=== PATIENT | male | born 1945 | race Caucasian/White ===

== ENCOUNTER 2018-09-06 20:09 | Inpatient (IN) ==
[2018-09-06] MEDS ORDERED: NS 1,000 ML IV ONE (22:22)
[2018-09-07 00:25] LABS: BASO# 0.01 X1000 (0.0-0.2); BASO% 0.2 % (0.0-0.8); EOS# 0.05 X1000 (0.0-0.7); HEMATOCRIT 31.2 % (42.0-52.0); HEMOGLOBIN 9.7 g/dL (14.0-18.0); LYMPH# 0.42 X1000 (1.2-3.4); LYMPH% 8.7 % (20.5-51.1); MCH 32.3 PG (27-31); MCHC 31.1 g/dL (33-37); MONO# 0.15 X1000 (0.11-0.59); MONO% 3.1 % (1.7-9.3); MPV 12.4 FL (7.4-10.4); NEUT# 4.21 X1000 (1.4-6.5); PLT 152 X1000 (130-400); WBC 4.84 X1000 (4.8-10.8)
[2018-09-07 00:33] LABS: AGAP 8; ALB/GLOB RATIO 1.3; ALKALINE PHOSPHATASE 64 U/L (32-122); BUN 22 mg/dL (8-22); CALCIUM 8.7 mg/dL (8.8-10.2); CHLORIDE 113 mmol/L (98-107); COSMO 294; CREATININE 0.9 mg/dL (0.7-1.2); ESTIMATED GFR > 60; GLUCOSE 109 mg/dL (70-104); GOT 26 U/L (10-34); GPT 20 U/L (10-44); POTASSIUM 4.7 mmol/L (3.5-5.1); SODIUM 146 mmol/L (136-145); TCO2 25 mmol/L (25-35); TOTAL BILIRUBIN 1.39 mg/dL (0.20-1.00); TOTAL PROTEIN 5.4 g/dL (6.3-8.3)
[2018-09-07] MEDS ORDERED: ATIVAN IV ONE ×3 (01:24→12:45)
--- NOTE | 2018-09-07 02:11 | PROVIDER DOCUMENTATION ---
This chart was entered by Nevaeh Grey Scribe, acting as scribe for Samantha Ruth MD. HPI-General Adult - General Source: patient - History of Present Illness -Gen Adult Nature of Presenting Problems: Pt is 72/M presenting to ED w/ increased n/v after chemotherapy 2-3 days ago. sts that it is worsening and that she believes that he is altered mentally as well. Pt has stage 4 pancreatic cancer and has been receiving treatment for the last 11 months. Location of Pain/Injury: reports: generalized Pain Radiation: reports: no radiation Quality of Pain: reports: none Severity: reports: moderate Onset/Duration: reports: 3 days ago Timing: reports: still present Context/Activities at Onset: reports: none Modifying Factors: improves with: nothing Associated Symptoms: reports: denies symptoms, nausea, vomiting. denies: cough, shortness of breath Similar Symptoms Previously?: Yes Recently seen or treated by another doctor?: Yes (Dr. Mojica) <Samantha Ruth - Last Filed: 09/07/18 02:11> - History of Present Illness -Gen Adult Nature of Presenting Problems: Patient is a 72 year old white male with stage IV pancreatic cancer and history of pneumonia who received chemo 2-3 days ago, presents with increasing shortness of breath and altered mentation. Denies fever. Followed by Dr. Cabello and Dr. Mojica <Christopher Shipley - Last Filed: 09/07/18 06:15> - General Chief Complaint: Nausea/Vomiting Stated Complaint: ON CHEMO, CONFUSION, DECREASED URINE OUTPUT, Time Seen by Provider: 09/06/18 22:22 Allergies/Adverse Reactions: Patient Allergies Allergy/AdvReac Type Severity Reaction Status Date / Time No Known Allergies Allergy Verified 09/06/18 23:26 Home Medications: Home Medication List Medication Instructions Recorded Confirmed Last Taken Type Alprazolam [Xanax] 0.25 mg PO Q12HR #60 tab 10/15/17 09/07/18 11/08/17 04:15 Rx Docusate Sodium [Colace] 100 mg PO BID #60 cap 10/15/17 09/07/18 11/07/17 21:00 Rx Morphine Ir 15 mg PO Q2H PRN PRN 10/16/17 09/07/18 11/08/17 04:15 History Polyethylene Glycol 3350 [Miralax] 17 gm PO Q6H PRN PRN powder, 10/19/17 09/07/18 11/07/17 21:00 Rx packet Acetaminophen [Tylenol] 500 mg PO TID PRN 11/07/17 09/07/18 11/05/17 History Megestrol Acetate 2 tab PO TID 11/07/17 09/07/18 11/07/17 21:00 History Vitamin B Complex [B Complex] 1 each PO DAILY 11/07/17 09/07/18 11/07/17 09:00 History Zinc 50 mg PO BID 11/07/17 09/07/18 11/07/17 09:00 History Rivaroxaban [Xarelto] 20 mg PO DAILY 07/08/18 09/07/18 Unknown History Acetaminophen [Tylenol] 650 mg PO PRN PRN tablet 07/11/18 09/07/18 Unknown Rx Gabapentin [Neurontin] 300 mg PO TID capsule 07/11/18 09/07/18 Unknown Rx Morphine E.r. [Ms Contin] 30 mg PO BID tablet 07/11/18 09/07/18 Unknown Rx Furosemide 40 mg PO DAILY PRN 09/07/18 09/07/18 Unknown History Ondansetron HCl 1 tab PO TID 09/07/18 09/07/18 Unknown History Review of Systems - Adult - REVIEW OF SYSTEMS - ADULT Constitutional: denies: chills, fever Eyes: reports: no symptoms reported Ears, Nose, Mouth & Throat: reports: no symptoms reported Cardiovascular: reports: no symptoms reported Respiratory: denies: cough, shortness of breath, wheezing Gastrointestinal: reports: nausea, vomiting. denies: abdominal pain Genitourinary: reports: no symptoms reported Musculoskeletal: reports: no symptoms reported Integumentary: reports: no symptoms reported Neurological: reports: no symptoms reported. denies: dizziness/vertigo, headache/migraines Psychiatric: reports: no symptoms reported Endocrine: reports: no symptoms reported Hematologic/Lymphatic: reports: no symptoms reported Allergic/Immunologic: reports: no symptoms reported All Other Systems: Reviewed and Negative <Samantha Ruth - Last Filed: 09/07/18 02:11> Past History - Adult - PAST MEDICAL HISTORY-ADULT Review of Records: reports: Old Records Reviewed, Nursing Assessment Review, Medications Reviewed, Social history reviewed & non-contributory. Major Childhood Illnesses: reports: denies history Cardiovascular: reports: denies history Respiratory: reports: denies history Gastrointestinal: reports: denies history Obstetrical/Gynecological: reports: denies history Genitourinary: reports: denies history Musculoskeletal: reports: denies history Neurological: reports: denies history Endocrine/Immune: reports: denies history, cancer Other Conditions: reports: denies history - PRIOR SURGERIES/PROCEDURES Surgical/Procedure History: reports: other (right knee) - IMMUNIZATION STATUS Childhood Immunizations: See Nurse Assessment Flu Vaccine: See Nurse Assessment - FAMILY HISTORY Family History: reviewed, not pertinent - SOCIAL HISTORY Smoking: cigarettes, less than 1 pack/day Provider spent 3-5 mins advising pt. on dangers of tobacco.: Discussed manners to quit use, and f/u contacts for add'l counseling. Substance Use: none/never Alcohol Use Frequency: never Living Situation: family <Samantha Ruth - Last Filed: 09/07/18 02:11> Physical Exam-General - PHYSICAL EXAM-ADULT Initial Vital Signs Reviewed: Yes - CONSTITUTIONAL General Appearance: appears well, alert, no apparent distress, thin - EYES Eyes: PERRL/EOMI, pink conjunctivae - HEAD, EARS, NOSE, MOUTH & THROAT HENMT: normocephalic/atraumatic, moist mucous membranes, normal ENT inspection, TMs normal, pharynx normal - NECK Neck: non-tender, full range of motion, supple, normal inspection - RESPIRATORY Respiratory: chest non-tender, lungs clear, normal breath sounds - CARDIOVASCULAR Cardiovascular: regular rate, rhythm, other (trace edema bilaterally) - GASTROINTESTINAL (ABDOMEN) Abdominal Exam: normal bowel sounds, non tender, soft. negative: rebound, tenderness - LYMPHATIC Lymphatic: no adenopathy - MUSCULOSKELETAL Back Exam: normal inspection, no CVA tenderness, no vertebral tenderness Extremity: normal range of motion, non-tender, normal gait, normal inspection - SKIN Integumentary: normal color, warm/dry - NEUROLOGIC Neurologic: grossly normal - PSYCHIATRIC Psych/Mental Status: normal mood/affect, normal thought content, normal thought process, oriented x 3 <Samantha Ruth - Last Filed: 09/07/18 02:11> Progress - PLAN OF CARE/RESULTS Progress/Plan/Lab Results: Vital Signs - 8 hr 03/28/19 20:15 Temperature 98.8 F Pulse Rate 75 Respiratory Rate 15 Blood Pressure 152/88 O2 Sat by Pulse Oximetry 96 Orders Category Date Time Status cxr [CHEST-PORTABLE] [RAD] Stat Exams 09/06/18 23:33 Ordered CBC WITH DIFF [HEME] Stat Lab 09/06/18 23:33 Uncollected CMP [COMPREHENSIVE METABOLIC PANEL] [CHEM] Stat Lab 09/06/18 23:33 Uncollected 0.9% Sodium Chloride Inj [Ns] 1,000 ml Med 09/06/18 22:22 Discontinued IV 999 mls/hr Result Diagrams: 09/06/18 23:05 09/06/18 23:05 - CHANGE OF SHIFT REPORT (ED Provider) 1 Report Given and Care Transferred to:: Dr. shipley Time of Transfer: 02:05 Items Pending: Other (head ct and ct of chest) <Samantha Ruth - Last Filed: 09/07/18 02:11> - PLAN OF CARE/RESULTS Progress/Plan/Lab Results: Vital Signs - 8 hr 09/06/18 20:15 09/07/18 03:03 Temperature 98.8 F 97.9 F Pulse Rate 75 79 Respiratory Rate 15 16 Blood Pressure 152/88 153/98 O2 Sat by Pulse Oximetry 96 98 Laboratory Results - last 24 hr 09/06/18 09/06/18 23:05 23:05 WBC 4.84 RBC 3.00 L Hgb 9.7 L Hct 31.2 L MCV 104.0 H MCH 32.3 H MCHC 31.1 L RDW Std Deviation 18.0 H Plt Count 152 MPV 12.4 H Neut % (Auto) 87.0 H Lymph % (Auto) 8.7 L [place] % (Auto) 3.1 Eos % (Auto) 1.0 Baso % (Auto) 0.2 Neut # (Auto) 4.21 Lymph # (Auto) 0.42 L [place] # (Auto) 0.15 Eos # (Auto) 0.05 Baso # (Auto) 0.01 Sodium 146 H Potassium 4.7 Chloride 113 H Carbon Dioxide 25 Anion Gap 8 BUN 22 Creatinine 0.9 Estimated GFR/1.73 m2 > 60 BUN/Creatinine Ratio 24 Glucose 109 H Calculated Osmolality 294 Calcium 8.7 L Total Bilirubin 1.39 H AST 26 ALT 20 Alkaline Phosphatase 64 Total Protein 5.4 L Albumin 3.0 L Globulin 2.4 Albumin/Globulin Ratio 1.3 Orders Category Date Time Status CT HEAD W/O CONTRAST [CT] Stat Exams 09/07/18 01:31 Taken Chest [CT THORAX W/CONTRAST] [CT] Stat Exams 09/07/18 00:35 Taken cxr [CHEST-PORTABLE] [RAD] Stat Exams 09/06/18 23:33 Taken ABG [RESP] Stat Lab 09/07/18 03:55 Ordered BLOOD CULTURE [BLDCUL] Stat Lab 09/07/18 03:54 Uncollected CBC WITH DIFF [HEME] Stat Lab 09/06/18 23:05 Completed CMP [COMPREHENSIVE METABOLIC PANEL] [CHEM] Stat Lab 09/06/18 23:05 Completed LACTATE, PLASMA [CHEM] Stat Lab 09/07/18 03:54 Uncollected 0.9% Sodium Chloride Inj [Ns] 1,000 ml Med 09/06/18 22:22 Discontinued IV 999 mls/hr Lorazepam [Ativan] Med 09/07/18 01:24 Discontinued 2 mg IV NOW ONE Result Diagrams: 09/06/18 23:05 09/06/18 23:05 - CT/MRI 1 CT Study: Head (no acute intracranial findings), Thorax CT Results: suggestive for central pulmonary edema and possible aspiration, torie pl effu - CONSULTS/PCP/HOSPITALIST Notification #1 *Consult/PCP/Hospitalist*: Dr. Solis, hospitalist Time Discussed: 06:10 Consult Disposition: Admit <Christopher Shipley - Last Filed: 09/07/18 06:15> Departure <Samantha Ruth - Last Filed: 09/07/18 02:11> - Departure Date of Disposition Decision: 09/07/18 Time of Disposition Decision: 06:15 Certified Medical Emergency: Emergent - Critical Care Note This patient required my direct & personal management of CC.: No <Christopher Shipley - Last Filed: 09/07/18 06:15> - Departure DIAGNOSIS: Bilateral pleural effusion Cancer of pancreas Qualifiers: Pancreatic malignancy location: unspecified Qualified Code(s): C25.9 - Malignant neoplasm of pancreas, unspecified Pulmonary edema Qualifiers: Chronicity: acute Qualified Code(s): J81.0 - Acute pulmonary edema Disposition: ADMITTED INPATIENT 09 Condition: Stable Referrals and Follow-Ups: Mushtaq Cabello MD [Primary Care Provider] - Attestation - Physician/ EMEKA Attestation Patient care was provided by Advanced Practice Provider:: No The physician spent face to face time with patient:: Yes Advanced Practice Provider documentation review:: Supervising physician onsite and consulted in the evaluation and care of this patient. The physician did have a face to face encounter with the patient. <Samantha Ruth - Last Filed: 09/07/18 02:11> This chart was documented by the indicated scribe, (Nevaeh Grey, [place]) and accurately reflects the services I performed and decisions made by me, Samantha Ruth MD, as attested by the provider's signature.
[2018-09-07 04:33] LABS: ALLEN TEST YES; BE -0.7 mmoll (-3.0-3.0); BLOOD TYPE ARTERIAL; HCO3-(ACT) 24.3 mmoll (20.0-26.0); METHB 0.8 % (0.0-1.5); O2(CT) 11.9 mL/dL (15.0-23.0); O2HB 91.4 % (95.0-99.0); PCO2(98.6) 32 mmHg (35-45); PO2(98.6) 66 mmHg (60-100); SAMPLE BLOOD; SAO2 95.6 % (95.0-100.0); THB 9.2 g/dL (11.5-17.4); pH(98.6) 7.46 (7.35-7.45)
[2018-09-07 04:34] LABS: MODALITY ROOM AIR
[2018-09-07] MEDS ORDERED: MORPHINE IV ONE (04:40)
[2018-09-07] MEDS ORDERED: ZOFRAN IV ONE (04:41)
[2018-09-07] MEDS ORDERED: LASIX IV ONE (05:35)
--- NOTE | 2018-09-07 05:37 | Diag Imaging Result Doc PS360 ---
EXAM: CHEST-PORTABLE HISTORY: pna TECHNIQUE: Portable chest single view COMPARISON: 12/16/2017 FINDINGS: Poor inspiratory effort. There is vascular distention. No cardiomegaly. No pleural effusions identified. No change in the right sided portacatheter. No consolidation. IMPRESSION: Pulmonary edema Electronically signed by Javad Crowder 09/07/2018 5:35 AM
--- NOTE | 2018-09-07 07:21 | Diag Imaging Result Doc PS360 ---
EXAM: CT HEAD W/O CONTRAST 09/07/2018 HISTORY: seizures TECHNIQUE: This exam was performed using automated exposure control, adjustment of mA or kV according to patient size, and/or use of iterative reconstruction technique. COMMENT: There is no evidence of mass effect, bleed, abnormal extra-axial fluid collection, or hydrocephalus. There is some calcification in the basal ganglia on the left. There is minimal white matter change in the external capsules. The appearance of the brain has not changed appreciably since 10/16/2017. There is no evidence of bleed, mass effect, or abnormal extra-axial fluid collection. The calvarium is intact. There is mucosal thickening in the maxillary sinuses bilaterally. IMPRESSION: Bilateral chronic maxillary sinusitis. No evidence of acute intracranial disease. Electronically signed by Mamadou Garcia 09/07/2018 7:18 AM
--- NOTE | 2018-09-07 07:34 | Diag Imaging Result Doc PS360 ---
EXAM: CT THORAX W/CONTRAST 09/07/2018 HISTORY: sob TECHNIQUE: This exam was performed using automated exposure control, adjustment of mA or kV according to patient size, and/or use of iterative reconstruction technique. COMMENT: There are no previous thoracic studies available for comparison. Comparison is made where possible with the abdominal CT of 10/11/2017. There are large bilateral pleural effusions more so on the right than the left. There is ascites. There is periportal edema in the liver. There is a fluid collection/cyst in the tail of the pancreas measuring up to 5.5 cm. This is slightly smaller than on the previous abdominal study of 10/11/2017. There is edema in the retroperitoneum and anterior pararenal spaces in particular. There are some prominent celiac nodes however these are stable or slightly diminished in size since the previous abdominal study. There is apparent thrombosis of the splenic vein. There are apparent varices. There are a number of lucencies present in the liver as well as a flash filling enhancing lesion laterally in the right lobe seen best around image 95. The multiple metastases which were demonstrated on 10/11/2017 are presumably much smaller than they were and there may be some residual necrosis. There is no evidence of significant adenopathy in the chest. There is compressive atelectasis in both lungs. The possibility of some underlying pneumonia cannot be excluded. There are degenerative disc changes particularly in the lower thoracic spine. There is no evidence of acute bony disease. IMPRESSION: Bilateral pleural effusions with compressive atelectasis. Ascites. Retroperitoneal edema which may be related to pancreatitis, or anasarca. Chronic changes in the pancreas and liver as described. Electronically signed by Mamadou Garcia 09/07/2018 7:32 AM
[2018-09-07] MEDS ORDERED: ZOFRAN IV PRN (08:05)
[2018-09-07] MEDS ORDERED: NS 1,000 ML IV ONE (08:05)
[2018-09-07] MEDS ORDERED: GEODON IM ONE ×2 (08:20→08:21)
[2018-09-07] MEDS ORDERED: STERILE WATER INJ. INJ ONE ×2 (08:20→08:21)
[2018-09-07] MEDS ORDERED: LEVAQUIN PO SCH (09:00)
[2018-09-07] MEDS ORDERED: MIRALAX PO PRN (09:54)
[2018-09-07] MEDS ORDERED: STERILE WATER INJ. INJ PRN (09:54)
[2018-09-07] MEDS: LEVAQUIN 500 MG/D5W 500 MG/100 ML IVPB IV SCH (10:07)
--- NOTE | 2018-09-07 10:46 | HISTORY AND PHYSICAL ---
CHIEF COMPLAINT: Mental status change. HISTORY OF PRESENT ILLNESS: This 72-year-old white male has known stage IV pancreatic cancer. He undergoes chemo on a weekly basis. The patient had chemo on Monday as per his usual regimen. He began to decline Monday and , but this reached its peak yesterday. The patient's stated that he was combative and violent. He was completely and utterly disoriented, which is not his usual. On previous chemo cycles, he does have developed fever, gets somewhat lethargic and a bit disoriented, but not nearly to the level of what took place last night. In fact, just before I got to the hospital in the morning, they had to call for excessive sedation. It took nearly 5 people to hold him down to give him an injection. PAST MEDICAL HISTORY: 1. A lifelong tobacco user. 2. Alcoholism, chronic. 3. History of blood clot after his diagnosis of pancreatic cancer. 4. Pancreatic cancer, stage IV. SURGICAL HISTORY: 1. Cervical disk. 2. Right rotator cuff repair. 3. Arthroscopy, right knee. ALLERGIES: No known drug allergies. FAMILY HISTORY: Noncontributory. SOCIAL HISTORY: The patient is and lives with his . He has 2 children, who are currently living in the home. He has a lifelong history of alcohol abuse. He has a lifelong history of tobacco use. REVIEW OF SYSTEMS: The patient had chemotherapy on Monday. As per his usual pattern, he began to run low-grade temperature almost immediately following the chemotherapy, and showed slight signs of mental status decline at that point. This continued to accelerate in regard to his level of disorientation, and he became violent last night. He was transported to the emergency room, and after 10 hours was finally admitted. The patient had been nauseated and not eating. He had not been drinking well. 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 She states that he has not been drinking alcohol. He still partakes of some type of cannabis-based gummy that some friend of his provides. He had continued taking his regular medications, which include morphine, gabapentin, and Xanax. PHYSICAL EXAM: GENERAL: At the time of my examination, the patient had been sedated with some Geodon and IV Ativan. I spoke with his in regard to the recent happenings. In general, he is a thin, white male in no acute distress. His face is slightly red. NECK EXAM: Unremarkable. No lymphadenopathy. LUNGS: Clear to auscultation in all nicole. CARDIOVASCULAR: Regular at 60 beats per minute. ABDOMEN: Show bowel sounds are present. EXTREMITIES: Show no peripheral edema. NEUROLOGICALLY AND PSYCHIATRICALLY: He is unable to be tested due to sedation. LABORATORY: White cell count is 4.8, hemoglobin is 9.7. ABG is unremarkable, other than a slight hyperventilation. Serum sodium is 146, chloride is 113, glucose 109, total bilirubin 1.39, lactate 0.9. ASSESSMENT AND PLAN: 1. Do not resuscitate level 1. 2. The patient will be covered with empiric antibiotics post chemotherapy. He almost always develops a fever. Very rarely, if ever, do I recall recovering some type of organism to identify as the source of his fever and it may strictly be chemo-related. 3. Patient's mental status change is an amplified version of what happens after every chemo treatment. I am wondering if any changes in chemotherapy have resulted in direct brain toxicity. 4. The patient has history of alcohol abuse. I am not sure that he is completely compliant with his regimen of benzodiazepines and narcotics. He is also using some cannabis products, so I am not clear on what this is contributing to his overall mental status. Clearly, his psyche is prone to abuse potential, and we will continue to monitor. For the present time, I am going to hold all the psychotropic medications and monitor his progress mentally. I do not want the man to be in pain, but by the same token, I do not want to have an altered sensorium as a result of his medications. This will require fairly significant monitoring. cc: Mushtaq Cabello MD
[2018-09-07] MEDS ORDERED: ATIVAN ONE (12:48)
[2018-09-07] MEDS: MEGACE PO SCH ×2 (13:34→16:29)
[2018-09-07] MEDS: TYLENOL PO PRN (21:42)
[2018-09-08] MEDS: COLACE PO SCH ×3 (00:07→22:22)
[2018-09-08] MEDS: GEODON IM PRN ×2 (01:30→04:12)
[2018-09-08] MEDS ORDERED: MORPHINE IV ONE (09:43)
[2018-09-08] MEDS: LEVAQUIN 500 MG/D5W 500 MG/100 ML IVPB IV SCH (10:32)
[2018-09-08] MEDS: XARELTO PO SCH (10:33)
[2018-09-08] MEDS: MEGACE PO SCH ×3 (10:33→17:10)
[2018-09-08] MEDS: ROXANOL CONC. LIQUID PO PRN ×5 (12:54→22:22)
[2018-09-08] MEDS: TYLENOL PO PRN (17:09)
[2018-09-09 04:00] LABS: URINE SOURCE CLEAN CATCH
[2018-09-09 04:14] LABS: BILIRUBIN URINE NEGATIVE (NEGATIVE); BLOOD URINE MODERATE (NEGATIVE); COLOR YELLOW; GLUCOSE URINE NEGATIVE (NEGATIVE); KETONE URINE NEGATIVE (NEGATIVE); LEUKOCYTES URINE NEGATIVE (NEGATIVE); NITRITE URINE NEGATIVE (NEGATIVE); PH URINE 7.5; PROTEIN URINE 70 mg/dL (NEGATIVE); SP GRAVITY URINE 1.015; TURBIDITY URINE CLEAR (CLEAR); UROBILINOGEN URINE NORMAL (NORMAL)
[2018-09-09 04:15] LABS: UR EPITHELIAL CELLS <10 /HPF (<10); URINE BACTERIA NEGATIVE /HPF; URINE RBC TNTC /HPF (<10); URINE WBC <10 /HPF (<10)
[2018-09-09 04:34] LABS: UR AMPHETAMINES QUAL NONE DETECTED (NONE DETECT); UR BARBITUATES QUAL NONE DETECTED (NONE DETECT); UR BENZODIAZEPIN QUAL NONE DETECTED (NONE DETECT); UR CANNABINOIDS QUAL PRESUMPTIVE POSITIVE (NONE DETECT); UR COCAINE QUAL PRESUMPTIVE POSITIVE (NONE DETECT); UR METHADONE QUAL NONE DETECTED (NONE DETECT); UR OPIATES QUAL PRESUMPTIVE POSITIVE (NONE DETECT); UR OXYCODONE QUAL NONE DETECTED (NONE DETECT); UR PCP QUAL NONE DETECTED (NONE DETECT)
[2018-09-09] MEDS: XARELTO PO SCH (09:31)
[2018-09-09] MEDS: MEGACE PO SCH ×3 (09:31→18:42)
[2018-09-09] MEDS: COLACE PO SCH ×2 (09:31→20:41)
[2018-09-09] MEDS: LEVAQUIN 500 MG/D5W 500 MG/100 ML IVPB IV SCH (09:32)
[2018-09-09] MEDS: ROXANOL CONC. LIQUID PO PRN ×7 (09:49→22:34)
[2018-09-09] MEDS: TYLENOL PO PRN (13:24)
[2018-09-10] MEDS: ROXANOL CONC. LIQUID PO PRN ×5 (01:14→21:38)
[2018-09-10] MEDS: XARELTO PO SCH (09:47)
[2018-09-10] MEDS: COLACE PO SCH ×2 (09:47→21:37)
[2018-09-10] MEDS: MEGACE PO SCH ×3 (09:47→18:36)
[2018-09-10] MEDS: LEVAQUIN 500 MG/D5W 500 MG/100 ML IVPB IV SCH (09:50)
--- NOTE | 2018-09-10 10:11 | HEMO/ONC CONSULTATION ---
DATE: 09/10/2018 REASON FOR CONSULTATION: Consulted for further management of the patient's metastatic pancreatic adenocarcinoma. HISTORY OF PRESENT ILLNESS: Mr. Nathan is a 72-year-old male who presented to the emergency department on 09/07/2018, complaining of increased nausea and vomiting after chemotherapy. was also concerned that the patient seemed to have some altered mental status. According to the , the patient was also combative and violent, and completely disoriented, which is not his usual. Mr. Nathan follows up in our clinic for his metastatic pancreatic adenocarcinoma. CT scan revealed a large pancreatic mass with multiple liver metastasis. CT-guided biopsy was unrevealing. He underwent endoscopic ultrasound and liver biopsy that revealed adenocarcinoma consistent with pancreatic primary. He was started on Gemzar and Abraxane on 10/29/2017 with initial CA-19-9 of 2011. The patient has been tolerating his Gemzar and Abraxane relatively well. The patient last received treatment on 09/04/2018 of his Gemzar and Abraxane at 80% of the dose. The patient also on Procrit for chemotherapy-induced anemia and also received that last dose on 09/04/2018 as well. PAST MEDICAL HISTORY: Life-long tobacco abuse, alcoholism, DVT, stage IV pancreatic cancer. SURGICAL HISTORY: Cervical disk repair, right rotator cuff repair, arthroscopy of the right knee. FAMILY HISTORY: Noncontributory. SOCIAL HISTORY: Life-long history of alcohol and tobacco abuse. No illicit drug use. ALLERGIES: No known drug allergies. HOME MEDICATIONS: 1. Tylenol. 2. Xanax. 3. Colace. 4. Furosemide. 5. Neurontin. 6. Megace. 7. MS Contin. 8. Morphine R. 9. Zofran. 10. MiraLAX. 11. Xarelto. 12. Vitamin B complex. 13. Zinc. REVIEW OF SYSTEMS: Negative as per HPI. PHYSICAL EXAMINATION: Vital Signs: Temperature 98.4 degrees, heart rate 50, respiratory rate 20, blood pressure 163/71, sat 98% on room air. General: The patient is awake, lying in bed, no acute distress noted. HEENT: Anicteric. Mucous membranes moist. Neck: Supple. Trachea midline. No JVD. Lymph Node Survey: No palpable lymphadenopathy. Cardiovascular: S1, S2. Regular rate and rhythm. Chest: Bilateral breath sounds clear to auscultation. Abdomen: Soft. Bowel sounds present in all 4 quadrants. Neurological: The patient is alert and oriented x3. LABORATORY DATA: White blood cell count is 4.84, hemoglobin 9.7, hematocrit of 31.2, platelets are 152. Potassium 4.7, BUN 22, creatinine 0.9. ASSESSMENT AND PLAN: 1. Metastatic pancreatic adenocarcinoma: The patient received his last dose of chemotherapy on 09/04/2018. At this time with treatment, the patient is better and back to baseline. Continue to monitor closely. 2. Altered mental status: CT of the head was negative. Continue recommendations per primary medical team. 3. Alcohol abuse. Continue to monitor withdrawals. Continue recommendations of primary medical team. 4. Nicotine cessation: Nicotine cessation education was provided. 5. Deep venous thrombosis prophylaxis. Continue Xarelto as ordered. Continue to have the patient up as much as possible. Dictated by OSVALDO Diggs for Jesus Mojica MD Patient seen and examined. As above. Patient admitted with change in mental status and agitation. Urine toxicity screen reveals cocaine and cannabis along with opioids. His mental status has improved during the hospitalization. No evidence of infection or metabolic abnormalities. Kidney function and liver function appears adequate. Continue supportive care. Jesus Mojica M.D. cc: OSVALDO Diggs MD Timothy P. Weirich, MD [facility] CENTERCindy
--- NOTE | 2018-09-10 13:08 | PROGRESS NOTE ---
DATE: 09/10/2018 SUBJECTIVE: The patient showed slow signs of improvement over the weekend. I reviewed Dr. Pulido's notes. The patient's states that his appetite is very poor and he is having almost zero nutrition. His mental status has improved. OBJECTIVE: Vital Signs: 98.4, 50, 20, 163/71, 98% saturated on room air. Lungs: Clear. Cardiovascular: Regularly irregular and sounds like a bigeminal pattern at the time of my examination. Extremities: No peripheral edema. The patient does have some numbness in his toes on neurologic examination but is able to move feet, ankles, and toes normally. Abdomen: Shows bowel sounds are present. LABORATORY DATA: There were no labs drawn today. ASSESSMENT AND PLAN: 1. The patient's reaction to his chemotherapy was out of character even for the usual level of confusion and lethargy that he experiences a couple days afterwards. I do not really have any explanation. He typically runs a low-grade fever post chemo and has loss of sensorium to a certain degree. This time, the violent reaction was quite a bit different. I am going to continue intravenous fluids and try and get him up and mobilized to see if we can handle him at home at this point. 2. The patient's is distraught about his decline, but given the course of his disease, I do not think it is out of the realm of what was expected with this particular disease process. 3. We had a very strange reading on the patient's urine drug screen. We know he has been using opiates and we know he has been getting some form of cannabin[place]. He came back with a positive cocaine screen. I checked his labs and they said there are very few, if any, false positives, and there is no human error that could have made that positive as well. He is unaware of anything he might have taken either [id number] or otherwise that could have made his cocaine screen positive. 4. Plan for today is to get the patient up and mobilized, sitting in the chair, eating, drinking, and to assess his function ability at that point. cc: Mushtaq Cabello MD
[2018-09-11 07:55] VITALS: BP 155/76
[2018-09-11] MEDS: ROXANOL CONC. LIQUID PO PRN (08:52)
[2018-09-11] MEDS: MEGACE PO SCH ×2 (08:55→13:09)
[2018-09-11] MEDS: COLACE PO SCH (08:55)
[2018-09-11] MEDS: XARELTO PO SCH (08:55)
[2018-09-11] MEDS: LEVAQUIN 500 MG/D5W 500 MG/100 ML IVPB IV SCH (09:01)
--- NOTE | 2018-09-11 09:19 | HEMO/ONC PROGRESS NOTE ---
DATE: 09/11/2018 SUBJECTIVE: The patient is starting to slowly feel better. Mental status has improved. OBJECTIVE: Vital Signs: Temperature 98.7 degrees, heart rate 51, respiratory rate 16, blood pressure 150/76, saturating 90% on room air. General: Patient is awake, lying in bed, no acute distress noted. HEENT: Anicteric. Pupils PERRLA. Mucous membrane moist. Cardiovascular: S1, S2. Regular rate and rhythm. Chest: Bilateral breath sounds clear to auscultation. Abdomen: Soft, nontender. Bowel sounds are present in all 4 quadrants. Neurologic: Alert and oriented x3. No focal deficits noted. ASSESSMENT AND PLAN: 1. Metastatic pancreatic adenocarcinoma: The patient last received dose of chemotherapy on 09/04/2018. Continue to monitor and wait on patient to return back to baseline. 2. Altered mental status: Mental status is improving since being hospitalized. Most likely cause of altered mental status is related to his cocaine use and cannabis. Continue to monitor closely. 3. Alcohol abuse: Continue to monitor for any withdrawals. Continuing recommendation per primary medical team. 4. Deep venous thrombosis prophylaxis: Continue Xarelto as ordered. Continue to have patient get out of bed as much as possible. 5. Nutrition: Protein shakes 3 times a day. Dictated by OSVALDO Diggs for Jesus Mojica MD Patient seen and examined. As above. Discussed with Dr. Cabello. Patient appears to be back to his mental status baseline. Jesus Mojica M.D. cc: MD Mushtaq Cabrera MD [facility]
--- NOTE | 2018-09-11 22:06 | DISCHARGE SUMMARY ---
ADMISSION DATE: 09/06/2018 DISCHARGE DATE: 09/11/2018 DISCHARGE DIAGNOSES: 1. Acute delirium. 2. Adverse effect of chemotherapeutic agent. 3. Abnormal urine drug screen. 4. Fever. CONSULTATIONS: Jesus Mojica MD HOSPITAL COURSE: This 72-year-old white male presented to the emergency room overnight with acute disturbance of behavior. He was confused and combative and even violent with his and the others who tried to help him in the emergency room. He required chemical sedation and physical restraints at times. The patient had presented late night. His chemo had been given to him on Monday. Although he has the usual downtime with lethargy and a little bit of confusion with low-grade fever following chemotherapy every time, this time was much, much worse. Patient was admitted to the hospital, given IV fluids and medications to calm him. His sensorium recovered after approximately 36 hours. He seemed to be more himself. We had long discussions with the family. The patient's is very angry about the fact that she is getting no help in taking care of him including being rebuffed by the patient at times. She complained about his overall weakness and nutrition but in the end was reconciled to the fact that this is the course for the severity and type of cancer that he has. We decided to discharge the patient home. He did not see any need for rehab and honestly I do not think it would help him. I do not think he would undertake home physical therapy either. The patient and his were both instructed on proper use of medications and those things that would help him to regain his strength. He was discharged in reasonable condition with followup as needed. He has an appointment to see Dr. Mojica next week, but I would advise him staying off the chemo for a week if at all possible. cc: Mushtaq Cabello MD
== END 2018-09-11 13:54 | disposition home or self-care (01) | DRG 948 ==
LOC: ED 20:09 → EDIPHOLD 09-07 09:03 → 4N 09-07 12:11
PROVIDERS: ADMIT Internal Medicine; ATTEND Internal Medicine
CPT/HCPCS: 70450; 71010; 71045; 71260; 80053; 80101; 80301; 80307; 80324; 80345; 80346; 80353; 80358; 80361; 80365; 81001; 82140; 82805; 83605; 83992; 85025; 87040; 94760; 94761; 96361; 96365; 96372; 96375; 96376; 99285; A9270; G0431; G0434; G0479; G0480; J1940; J1956; J2060; J2270; J2405; J3486; J7030; Q9967; S0179

== ENCOUNTER 2019-02-10 01:24 | Observation (INO) ==
[2019-02-10] MEDS ORDERED: NS 1,000 ML IV ONE ×2 (01:59→05:13)
[2019-02-10 02:24] LABS: MCH 32.4 PG (27-31); MCHC 33.3 g/dL (33-37); MCV 97.3 FL (81-99); RBC 3.39 XMIL (4.7-6.1); RDW 16.4 % (11.5-14.5); WBC 2.94 X1000 (4.8-10.8)
[2019-02-10 02:25] LABS: BASO# 0.01 X1000 (0.0-0.2); BASO% 0.3 % (0.0-0.8); EOS# 0.18 X1000 (0.0-0.7); EOS% 6.1 % (0.0-10.0); LYMPH% 23.8 % (20.5-51.1); MONO% 10.2 % (1.7-9.3); MPV 11.7 FL (7.4-10.4); NEUT# 1.75 X1000 (1.4-6.5); NEUT% 59.6 % (42.2-75.2); PLT 126 X1000 (130-400)
[2019-02-10 03:02] LABS: ESTIMATED GFR > 60
[2019-02-10 03:04] LABS: AGAP 12; ALB/GLOB RATIO 1.5; ALBUMIN 3.6 g/dL (3.5-5.0); ALKALINE PHOSPHATASE 64 U/L (32-122); AMYLASE 8 U/L (20-200); BUN 16 mg/dL (8-22); CALCIUM 9.2 mg/dL (8.8-10.2); CHLORIDE 106 mmol/L (98-107); COSMO 278; CREATININE 1.1 mg/dL (0.7-1.2); GLUCOSE 123 mg/dL (70-104); GOT 19 U/L (10-34); GPT 18 U/L (10-44); LIPASE 8 U/L (13-60); POTASSIUM 3.7 mmol/L (3.5-5.1); SODIUM 138 mmol/L (136-145); TCO2 20 mmol/L (25-35); TOTAL BILIRUBIN 0.43 mg/dL (0.20-1.00)
[2019-02-10] MEDS ORDERED: QUESTRAN PO ONE (05:13)
[2019-02-10] MEDS ORDERED: QUESTRAN PO SCH (05:15)
--- NOTE | 2019-02-10 05:21 | PROVIDER DOCUMENTATION ---
This chart was entered by Jaja Ramirez Scribe, acting as scribe for Tori Acevedo MD. HPI-Abdominal Pain/GI Problem - General Chief Complaint: Diarrhea Stated Complaint: CHRONIC DIARRHEA (ON CHEMO) Time Seen by Provider: 02/10/19 01:56 Source: patient, family Allergies/Adverse Reactions: Patient Allergies Allergy/AdvReac Type Severity Reaction Status Date / Time lorazepam [From Ativan] AdvReac MAKES Verified 02/10/19 01:36 PATIENT VIOLENT Home Medications: Home Medication List Medication Instructions Recorded Confirmed Last Taken Type Docusate Sodium [Colace] 100 mg PO BID #60 cap 10/15/17 02/10/19 11/12/18 09:00 Rx Morphine Ir 15 mg PO TID PRN PRN 10/16/17 02/10/19 11/11/18 21:00 History Megestrol Acetate 1 tab PO TID 11/07/17 02/10/19 11/12/18 09:00 History Zinc 50 mg PO BID 11/07/17 02/10/19 11/12/18 09:00 History Rivaroxaban [Xarelto] 20 mg PO DAILY 07/08/18 02/10/19 11/08/18 09:00 History Alprazolam [Xanax] 0.75 - 1 mg PO QHS 11/08/18 02/10/19 11/11/18 21:00 History Cyanocobalamin (Vitamin B-12) 1,000 mcg PO DAILY 11/08/18 02/10/19 11/12/18 09:00 History [Vitamin B-12] Morphine E.r. [Ms Contin] 30 mg PO Q12HR 11/08/18 02/10/19 11/12/18 09:00 History Multivitamin/Iron/Folic Acid 1 ea PO DAILY 11/08/18 02/10/19 11/12/18 09:00 History [Centrum Adults Tablet] Ondansetron HCl [Zofran] 4 mg PO TID 11/08/18 02/10/19 11/12/18 09:00 History Trazodone HCl 300 mg PO HS 11/08/18 02/10/19 11/11/18 21:00 History Furosemide [Lasix] 40 mg PO PRN PRN 02/10/19 02/10/19 Unknown History Pregabalin [Lyrica] 25 mg PO BID 02/10/19 02/10/19 Unknown History Pregabalin [Lyrica] 75 mg PO DAILY 02/10/19 02/10/19 Unknown History Suvorexant [Belsomra] 20 mg PO DAILY 02/10/19 02/10/19 Unknown History - History of Present Illness-ABD Nature of Presenting Problems: 73 yom presents w/family at bedside w/cc BM incontinence and diarrhea starting monday. pt family is main historian. sts that pt has advanced pancreatic cancer, diagnosed last yr, started new chemo on monday. family has given max doses of kaopectate and imodium to pt w/little relief. pt having 5-6 watery diarrhea episodes/day. pt has been eating and drinking. pt has had episodes of "fever", with temp being 99.3 at home. pt sts he is somewhat weak. pt denies vomiting and abd pain. family has pt rx list in room. Pain Radiation: reports: no radiation Quality of Pain: reports: none Onset/Duration: reports: 6 days ago Timing: reports: still present Activities at Onset: reports: none Associated Symptoms: reports: fever/chills Review of Systems - Adult - REVIEW OF SYSTEMS - ADULT Constitutional: reports: see HPI, fever. denies: chills, night sweats Eyes: reports: no symptoms reported Ears, Nose, Mouth & Throat: reports: no symptoms reported Cardiovascular: reports: no symptoms reported Respiratory: reports: no symptoms reported Gastrointestinal: reports: see HPI, diarrhea, other (BM incontinence). denies: abdominal pain, constipation, nausea, poor appetite, vomiting Genitourinary: reports: no symptoms reported Musculoskeletal: reports: see HPI, muscle weakness (minimal). denies: back pain, joint swelling, muscle aches Integumentary: reports: no symptoms reported Neurological: reports: no symptoms reported Psychiatric: reports: no symptoms reported Endocrine: reports: no symptoms reported Hematologic/Lymphatic: reports: no symptoms reported Allergic/Immunologic: reports: no symptoms reported All Other Systems: Reviewed and Negative Past History - Adult - PAST MEDICAL HISTORY-ADULT Review of Records: reports: Old Records Reviewed, Nursing Assessment Review, Medications Reviewed, Social history reviewed & non-contributory. Major Childhood Illnesses: reports: denies history Cardiovascular: reports: denies history Respiratory: reports: denies history Gastrointestinal: reports: denies history Obstetrical/Gynecological: reports: denies history Genitourinary: reports: denies history Musculoskeletal: reports: denies history Neurological: reports: denies history Endocrine/Immune: reports: cancer (stage 4 pancreatic) Other Conditions: reports: denies history - PRIOR SURGERIES/PROCEDURES Surgical/Procedure History: reports: orthopedic (extremity), other (right knee) - IMMUNIZATION STATUS Childhood Immunizations: See Nurse Assessment Flu Vaccine: See Nurse Assessment - FAMILY HISTORY Family History: reviewed, not pertinent - SOCIAL HISTORY Smoking: cigarettes, less than 1 pack/day Provider spent 3-5 mins advising pt. on dangers of tobacco.: Discussed manners to quit use, and f/u contacts for add'l counseling. Substance Use: none/never Physical Exam-General - PHYSICAL EXAM-ADULT Initial Vital Signs Reviewed: Yes - CONSTITUTIONAL General Appearance: alert, no apparent distress, cachetic, thin, other (appears weak). negative: appears well, combative - EYES Eyes: PERRL/EOMI - HEAD, EARS, NOSE, MOUTH & THROAT HENMT: normocephalic/atraumatic, moist mucous membranes, normal ENT inspection - NECK Neck: non-tender, full range of motion, supple, normal inspection - RESPIRATORY Respiratory: chest non-tender, lungs clear, normal breath sounds - CARDIOVASCULAR Cardiovascular: normal peripheral pulses, regular rate, rhythm - GASTROINTESTINAL (ABDOMEN) Abdominal Exam: normal bowel sounds, non tender, soft. negative: abnormal bowel sounds, distended, guarding, rigid, rebound, tenderness - MUSCULOSKELETAL Back Exam: normal inspection, no vertebral tenderness Extremity: normal range of motion, non-tender, normal inspection Peripheral Pulses: dorsalis-pedis (R): 2+, dorsalis-pedis (L): 2+ - SKIN Integumentary: normal turgor, warm/dry, pallor - NEUROLOGIC Neurologic: grossly normal - PSYCHIATRIC Psych/Mental Status: normal mood/affect, oriented x 3 Progress - PLAN OF CARE/RESULTS Progress/Plan/Lab Results: Vital Signs - 8 hr 02/10/19 01:29 Temperature 98.2 F Pulse Rate 81 Respiratory Rate 16 Blood Pressure 115/74 O2 Sat by Pulse Oximetry 98 Patient with WBC to 2.9 but likely 2/2 to chemo. Appears weak on exam. Spoke to Dr Mojica's [employer] who stated that patient should be admitted to hospitalist for IVF and monitor him and they will stay on as consult and see the patient in the AM. Spoke to pharmacist about other options for medications to help with diarrhea and they recommended off label use with Questran 2-4mg PO 2-4x per day and continue with imodium. Spoke to Dr Barr distribution center manager for hospitalist who accepted patient for admission. Further orders to be placed by their team. Result Diagrams: 02/10/19 01:57 02/10/19 01:57 - CONSULTS/PCP/HOSPITALIST Notification #1 *Consult/PCP/Hospitalist*: Dr Barr Time Discussed: 04:30 Consult Disposition: Admit Departure - Departure Date of Disposition Decision: 02/10/19 Time of Disposition Decision: 04:30 DIAGNOSIS: Intractable diarrhea, Weakness, History of pancreatic cancer, Dehydration Disposition: ADMITTED INPATIENT 09 Certified Medical Emergency: Emergent Condition: Stable Referrals and Follow-Ups: Mushtaq Cabello MD [Primary Care Provider] - - Critical Care Note This patient required my direct & personal management of CC.: No Attestation - Physician/ EMEKA Attestation Patient care was provided by Advanced Practice Provider:: No The physician spent face to face time with patient:: Yes Advanced Practice Provider documentation review:: Supervising physician onsite and consulted in the evaluation and care of this patient. The physician did have a face to face encounter with the patient. This chart was documented by the indicated scribe, (Jaja Ramierz Scribe) and accurately reflects the services I performed and decisions made by me, Tori Acevedo MD, as attested by the provider's signature.
[2019-02-10] MEDS ORDERED: IMODIUM PO SCH (05:30)
[2019-02-10] MEDS ORDERED: ZOFRAN IV PRN (06:34)
[2019-02-10] MEDS ORDERED: LASIX PO PRN (06:34)
--- NOTE | 2019-02-10 06:37 | HISTORY AND PHYSICAL ---
PRIMARY CARE PHYSICIAN: Dr. Cabello. CHIEF COMPLAINT: Diarrhea, low-grade temperature, not feeling well. HISTORY OF PRESENTING ILLNESS: A 73-year-old male with a history of pancreatic cancer, who had presented to emergency department with several days history of having diarrhea and having low- grade temperature. Apparently, family states, that his chemo regimen had been recently changed, and subsequently after that he has been having the symptoms. The patient was getting more weak and was also getting, at times, confused. He is brought to the emergency department, and due to his presenting symptoms, it was thought that he will need admission for further management. At the time of my examination, patient denied any headache, chest pain, shortness of breath, but complained of diarrhea and not feeling well. PAST MEDICAL HISTORY: Includes pancreatic cancer. PAST SURGICAL HISTORY: PowerPort, cervical fusion, right knee arthroscopy, bilateral rotator cuff surgery. ALLERGIES: Lorazepam. CURRENT MEDICATIONS: Include Xanax 0.5 mg, 1 tablet at bedtime, Lasix 40 mg p.o. daily, p.r.n., megestrol 40 mg p.o. t.i.d., morphine 30 mg p.o. q.12 hours, Zofran 4 mg p.o. t.i.d., pregabalin 75 mg p.o. daily, Xarelto 20 mg p.o. daily, Belsomra 20 mg p.o. daily, trazodone 300 mg p.o. at bedtime. SOCIAL HISTORY: [id number]-[id number]-dapxy history of smoking. History of alcohol use. History of marijuana use. FAMILY HISTORY: No history of coronary disease. REVIEW OF SYSTEMS: Fourteen-point review of systems is as in HPI. Other systems negative. PHYSICAL EXAMINATION: GENERAL: Cooperative, friendly male. He is resting comfortably now. VITAL SIGNS: Temperature 98.2 degrees, pulse 81, respirations 16, blood pressure 115/74. HEENT: Atraumatic, normocephalic. Extraocular movements intact. PERRLA. NECK: No masses. CHEST: Clear to auscultation. CARDIOVASCULAR: Regular rate and rhythm. ABDOMEN: Soft. Positive bowel sounds. EXTREMITIES: No edema. NEUROLOGIC: He is awake, alert, oriented x2. GENITOURINARY: No bladder distention. SKIN: Warm. LABORATORIES AND STUDIES: Sodium 138, potassium 3.7, chloride 106, CO2 is 20, BUN is 16, creatinine is 1.1. Glucose 123. WBC 2.94, hemoglobin 11.1, hematocrit 30.0, platelets 126,000. ASSESSMENT: A 73-year-old male with a history of advanced pancreatic cancer, who had presented to emergency department with several days history of having worsening diarrhea and low-grade temperature. He was evaluated in the emergency department, due to his presenting symptoms, we will place him for observation for further evaluation and management. 1. Acute diarrhea. 2. Generalized weakness. 3. Advanced pancreatic cancer. PLAN: 1. We will admit patient to medical floor with telemetry. 2. Continue with supportive treatment with IV fluids, antiemetics as needed. 3. We will consult his oncologist. 4. Patient the patient is on Xarelto and this will suffice for DVT prophylaxis. 5. We will continue to follow and reassess, make further recommendation based on patient's clinical course. cc: MD Mushtaq Rubio MD
--- NOTE | 2019-02-10 07:58 | Diag Imaging Result Doc PS360 ---
EXAM: CHEST-PORTABLE INDICATION: rule out aspiration TECHNIQUE: One view COMPARISON: 11/12/2018 FINDINGS: The right chest port is in stable position. The lungs are grossly clear. There is no discrete pleural fluid collection or pneumothorax. The cardiomediastinal silhouette and central vasculature are grossly unremarkable. IMPRESSION: No evidence of acute pathology by plain radiograph. Electronically signed by Jose Ramirez 02/10/2019 7:55 AM
[2019-02-10] MEDS ORDERED: LYRICA PO SCH ×2 (09:00→21:00)
[2019-02-10] MEDS ORDERED: MEGACE PO SCH (09:00)
--- NOTE | 2019-02-10 09:49 | PROGRESS NOTE ---
DATE: 02/10/2019 SUBJECTIVE: The patient's chart was reviewed. I spent a lot of time with the patient's . He has had episodic severe fecal incontinence and diarrhea since having his last chemo on Monday. He began running fever and was brought to the emergency room. OBJECTIVE: Vital signs: T-max 99.1 degrees, temperature now 98.8, 107/62, 60, 20, 99% saturated on room air. General: The patient is asleep. I did not wake him. Lungs: Clear. Cardiovascular: Regular. Abdomen: Soft. Bowel sounds are present and not hyperactive. LABORATORY: Laboratories were reviewed. ASSESSMENT AND PLAN: 1. The patient has stage IV pancreatic cancer. He clearly did not tolerate his last chemo which is either the 3rd or 4th line for him. He has now survived 18 months with inoperable cancer. I asked the patient's family to strongly consider Hospice care. There are multiple psychosocial factors which are weighing heavily upon the patient and his family and makes it very difficult. I do not think, based on my interactions with the patient or his family outside of the office, that he is capable of making those decisions himself. He may have moments of lucidity, but by and large, I do not think he is fully cognizant of the situation that he is in. 2. The patient will be given all means to alleviate any further diarrhea. We are going to try and let him rest, as it has been multiple days since he slept. I would like to pare his medications down to the bare minimum required for him to sleep and function in a relatively pain-free way. cc: Mushtaq Cabello MD
[2019-02-10] MEDS: ZOFRAN PO SCH ×3 (11:30→20:08)
[2019-02-10] MEDS: LYRICA PO SCH ×2 (11:30→13:06)
[2019-02-10] MEDS: MEGACE PO SCH ×3 (11:30→20:08)
[2019-02-10] MEDS: VITAMIN B-12 PO SCH (13:06)
[2019-02-10] MEDS: CENTRUM TABLET PO SCH (13:06)
[2019-02-10] MEDS: PRILOSEC PO SCH (13:06)
--- NOTE | 2019-02-10 13:08 | HEMO/ONC CONSULTATION ---
DATE: 02/10/2019 REASON FOR CONSULTATION: This is a known patient of ours for metastatic pancreatic adenocarcinoma. HISTORY OF PRESENTING ILLNESS: This is a 73-year-old male with a history of metastatic pancreatic cancer, who presented to the ER last night with a several-day history of liquid watery diarrhea and low-grade fever. The patient started his first cycle of a new chemotherapy Onivyde, leucovorin and 5-FU this past 02/04/2019. Since then, he has had several watery diarrhea bowel movements per day that he has been unable to control. He has continue to get weaker and be quite confused at times, according to his . He has had a minimal amount of sleep this week. The patient states this morning that his diarrhea has been better since he has been n.p.o., and he feels hungry at the moment. PAST MEDICAL HISTORY: Pancreatic cancer. PAST SURGICAL HISTORY: Port-A-Cath insertion, cervical fusion, right knee arthroscopy, bilateral rotator cuff surgery. ALLERGIES: Lorazepam. HOME MEDICATIONS: Xanax, Lasix, megestrol, morphine, Zofran, pregabalin, Xarelto, Belsomra, trazodone. SOCIAL HISTORY: Sixty pack year history of smoking, alcohol on occasion, history of marijuana use. REVIEW OF SYSTEMS: Pertinent positives are in the HPI. PHYSICAL EXAMINATION: Vital Signs: Temperature 98.5 degrees, pulse rate 66, respiratory rate 21, blood pressure 131/56, O2 saturation 96% on room air. He has 0/10 pain. General: Elderly appearing, chronically ill male in no acute distress. HEENT: Sclerae anicteric. PERRLA. Cardiovascular: Normal S1, S2. Heart rate and rhythm regular. Respiratory: Lungs are clear to auscultation. GI: Abdomen is soft, nontender, nondistended. Bowel sounds are positive. Extremities: No edema noted. Neurological: Awake, alert, and oriented x2. No focal motor deficits noted. Skin: Warm, dry, and intact. LABORATORY: WBC is 2.94, hemoglobin 11, hematocrit 33.0, platelet count a 126,000, ANC is 1.75. ASSESSMENT AND PLAN: The patient has been admitted for excessive watery diarrhea. Continue management per Dr. Cabello. The patient is currently awake and requesting to eat We are going to start him with broth and allow the nurse to advance as tolerated to a GI soft diet. The patient's remains at bedside. Continue IVF and antidiarrheals. Check C.diff. Dictated by OSVALDO Galeana for Jesus Mojica MD MTDD
[2019-02-10] MEDS: ZINC SULFATE PO SCH ×2 (13:14→20:08)
[2019-02-10] MEDS: XARELTO PO SCH (13:15)
[2019-02-10] MEDS: MS CONTIN PO SCH ×2 (13:15→20:08)
[2019-02-10] MEDS: NS 1,000 ML IV SCH ×2 (14:33→22:07)
[2019-02-10] MEDS: MORPHINE IR PO PRN ×3 (16:20→23:51)
[2019-02-10] MEDS ORDERED: XANAX PO SCH (21:00)
[2019-02-10] MEDS: PATIENT'S OWN MED PO SCH ×2 (21:00→22:12)
[2019-02-10] MEDS ORDERED: DESYREL PO SCH (21:00)
[2019-02-11] MEDS ORDERED: MORPHINE IV ONE (03:07)
[2019-02-11 07:15] LABS: BASO# 0.01 X1000 (0.0-0.2); BASO% 0.3 % (0.0-0.8); EOS% 6.2 % (0.0-10.0); HEMATOCRIT 28.8 % (42.0-52.0); HEMOGLOBIN 9.5 g/dL (14.0-18.0); LYMPH% 24.9 % (20.5-51.1); MCH 32.5 PG (27-31); MCV 98.6 FL (81-99); MONO# 0.24 X1000 (0.11-0.59); MONO% 7.5 % (1.7-9.3); MPV 11.3 FL (7.4-10.4); NEUT# 1.96 X1000 (1.4-6.5); NEUT% 61.1 % (42.2-75.2); PLT 105 X1000 (130-400); RBC 2.92 XMIL (4.7-6.1); RDW 16.4 % (11.5-14.5); WBC 3.21 X1000 (4.8-10.8)
[2019-02-11 07:23] LABS: AGAP 9; BUN 10 mg/dL (8-22); CALCIUM 8.1 mg/dL (8.8-10.2); CHLORIDE 114 mmol/L (98-107); COSMO 280; CREATININE 0.8 mg/dL (0.7-1.2); ESTIMATED GFR > 60; GLUCOSE 93 mg/dL (70-104); POTASSIUM 3.5 mmol/L (3.5-5.1); SODIUM 141 mmol/L (136-145); TCO2 18 mmol/L (25-35)
[2019-02-11] MEDS: LYRICA PO SCH ×3 (07:53→12:31)
[2019-02-11] MEDS: PRILOSEC PO SCH ×2 (07:54→08:24)
[2019-02-11] MEDS: ZINC SULFATE PO SCH ×2 (07:54→08:23)
[2019-02-11] MEDS: MS CONTIN PO SCH ×2 (07:54→08:23)
[2019-02-11] MEDS: XARELTO PO SCH ×2 (07:54→08:24)
[2019-02-11] MEDS: VITAMIN B-12 PO SCH ×2 (07:54→08:24)
[2019-02-11] MEDS: ZOFRAN PO SCH ×3 (07:55→12:31)
[2019-02-11] MEDS: MEGACE PO SCH ×3 (07:55→12:31)
[2019-02-11] MEDS: CENTRUM TABLET PO SCH (08:23)
[2019-02-11 08:57] LABS: URINE SOURCE CLEAN CATCH
[2019-02-11 08:59] LABS: BILIRUBIN URINE NEGATIVE (NEGATIVE); BLOOD URINE NEGATIVE (NEGATIVE); COLOR YELLOW; GLUCOSE URINE NEGATIVE (NEGATIVE); KETONE URINE NEGATIVE (NEGATIVE); LEUKOCYTES URINE NEGATIVE (NEGATIVE); NITRITE URINE NEGATIVE (NEGATIVE); PH URINE 5.5; PROTEIN URINE NEGATIVE (NEGATIVE); SP GRAVITY URINE 1.013; TURBIDITY URINE CLEAR (CLEAR); UR EPITHELIAL CELLS <10 /HPF (<10); URINE BACTERIA NEGATIVE /HPF; URINE RBC <10 /HPF (<10); URINE WBC <10 /HPF (<10); UROBILINOGEN URINE NORMAL (NORMAL)
--- NOTE | 2019-02-11 10:36 | DISCHARGE SUMMARY ---
ADMISSION DATE: 02/10/2019 DISCHARGE DATE: 02/11/2019 DISCHARGE DIAGNOSES: 1. Diarrhea. 2. Fecal incontinence. 3. Dehydration. 4. Chemotherapy-induced mucositis. 5. Chronic abdominal pain secondary to pancreatic cancer. 6. Pancreatic cancer, stage IV. 7. Early chronic pain. HOSPITAL COURSE: A 73-year-old white male was admitted after 5 days of fecal incontinence, diarrhea, complete incapacitation, as well as disorientation. Despite potential symptomatic treatment on outpatient basis the patient's problems continued and he was brought in to the hospital, was disoriented. Appropriate hydration and symptomatic measures were employed. The patient has also not slept well for several days and on the day after admission, he pretty much slept through the morning and was more back to himself after that. The patient did not have any further diarrhea. He continued to have some abdominal pain, which was addressed with additional morphine. On the day of discharge, the patient was eagerly desirous of discharge. We had a long conversation about the quality of life, dignity and whether he wanted to pursue further chemotherapy. It is quite likely that he will but I am not sure that 1 week's worth of incapacitation on an every other week basis is going to improve the quality of his life. This was discussed at length with the patient and his . They expressed understanding and will consult further with Dr. Mojica on a regular follow-up. DISPOSITION: There is no change the patient's medical regimen. If he pursues additional chemotherapy treatments, I would suggest that he stop his colchicine and other stool softeners 1 day prior to chemotherapy to avoid some of this present unpleasantness. cc: Mushtaq Cabello MD
[2019-02-11] MEDS: MORPHINE IR PO PRN (12:31)
[2019-02-11 12:55] VITALS: BP 108/59
== END 2019-02-11 14:28 | disposition home or self-care (01) ==
LOC: ED 01:24 → 3N 01:24 → SUATTDRO 06:01
PROVIDERS: ADMIT Internal Medicine; ATTEND Internal Medicine